=== PATIENT | female | born 1995 | race American Indian/Alaskan Native ===

== ENCOUNTER 2017-10-23 14:23 | Emergency (ER) | payer OTHER ==
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
[2017-10-23] MEDS ORDERED: MOTRIN PO ONE (17:18)
[2017-10-23] MEDS ORDERED: TRIPLE ANTIBIOTIC TP ONE ×2 (17:23→17:25)
[2017-10-23] MEDS ORDERED: FLEXERIL ONE (17:23)
[2017-10-23] MEDS ORDERED: FLEXERIL PO ONE (17:31)
[2017-10-23 18:39] VITALS: BP 122/78
== END 2017-10-23 18:40 | disposition home or self-care (01) ==
LOC: ED 14:23
DX: S80.811A Abrasion, right lower leg, initial encounter (principal); M25.561 Pain in right knee; M25.571 Pain in right ankle and joints of right foot; V89.2XXA Person injured in unspecified motor-vehicle accident, traffic, initial encounter; W22.11XA Striking against or struck by driver side automobile airbag, initial encounter; Y93.89 Activity, other specified; Y99.8 Other external cause status; Y92.410 Unspecified street and highway as the place of occurrence of the external cause
CPT/HCPCS: 99284; A6250